=== PATIENT | female | born 1995 | race Caucasian/White ===

== ENCOUNTER → 2020-01-27 | Outpatient (CLI) | payer MEDICAID ==
[2020-01-27 10:15] LABS: EOS # 0.4 (0.04-0.40); EOS % 3.3 % (1.0-5.0); HEMATOCRIT 40.5 % (37.0-47.0); HEMOGLOBIN 12.7 g/dL (12.5-16.0); LYMPH# 1.9 (1.50-4.00); MEAN CELL VOLUME 74 fl (78-100); MEAN CORPUSCULAR HGB CONC 31 g/dL (33-37); MONO # 0.7 (0.20-0.80); PLATELET COUNT 344 K/mm3 (130-400); RED BLOOD COUNT 5.49 M/mm3 (4.10-5.30); RED CELL DISTRIBUTION WIDTH 17.2 % (11.5-14.5); WHITE BLOOD COUNT 12.6 K/mm3 (4.8-10.8)
[2020-01-27 10:17] LABS: MEAN CORPUSCULAR HEMOGLOBIN 23 pg (27-31); NEU # 9.5 (1.40-6.50)
[2020-01-27 10:24] LABS: ALBUMIN 4.3 g/dL (3.5-5.0); POTASSIUM 4.1 mmol/L (3.5-5.1)
[2020-01-27 10:25] LABS: CALCIUM 9.2 mg/dL (8.3-10.5)
[2020-01-27 10:26] LABS: TOTAL PROTEIN 7.2 g/dL (6.4-8.3)
[2020-01-27 10:33] LABS: MAGNESIUM 1.99 mg/dL (1.60-2.60)
[2020-01-27 10:43] LABS: TOTAL BILIRUBIN 0.1 mg/dL (0.2-1.2)
[2020-01-27 11:24] LABS: ERYTHROCYTE SEDIMENTATION RATE 23 mm/hr (0-20)
== END ==
LOC: LAB 09:36
PROVIDERS: Internal Medicine
DX: M54.16 Radiculopathy, lumbar region (principal)

== ENCOUNTER → 2020-04-09 | Outpatient (CLI) | payer MEDICAID ==
[2020-04-05 16:29] VITALS: BP 114/86
[~2020-04-09] MED LIST: ACETAMINOPHEN-H1 TA2 PO; AMITRIPTYLINE H25 M2 PO; CEFDINIR300 MG PO; CYCLOBENZAPRINE10 M1 PO; DESYREL50 MG PO; DIAMOX 250MG250 MG PO; FERROUS SULFAT325 M4 PO; GABAPENTIN100 MG PO; HYDROCORTISONE20 MG; HYDROXYZINE PAM50 M2 PO; KLONOPIN 1MG1 MG PO; PANTOPRAZOLE SO40 MG PO; PEG335017 GM/Dose PO; QUETIAPINE FUM400 M1 PO; ROSUVASTATIN CA10 MG PO; ROXIFOL-D TA500 UNIT PO; RT ALBUTEROL CC18 GM IH; SINGULAIR PO; SLOW RELEASE I142 MG PO; TILIA FE1 TAB PO; ZOFRAN ODT4 MG PO; [UNRECOGNIZED DRUG - CODE]
== END ==
LOC: RAD 16:59
DX: M25.551 Pain in right hip (principal); M25.561 Pain in right knee

== ENCOUNTER 2020-07-12 22:39 | Emergency (ER) | payer MEDICAID ==
[~2020-07-12 22:39] MED LIST changes: -HYDROCORTISONE20 MG; +HYDROCORTISONE20 MG PO
[2020-07-12] MEDS ORDERED: METOPROLOL SUCC25 M1 PO (23:13)
[2020-07-12] MEDS ORDERED: LEVETIRACETAM500 M2 PO (23:14)
[2020-07-12] MEDS ORDERED: ACETAZOLAMIDE500 M4 PO (23:14)
[2020-07-13 00:23] LABS: EOS # 0.5 (0.04-0.40); EOS % 3.5 % (1.0-5.0); HEMATOCRIT 39.7 % (37.0-47.0); HEMOGLOBIN 12.6 g/dL (12.5-16.0); LYMPH# 3.4 (1.50-4.00); MEAN CELL VOLUME 76 fl (78-100); MEAN CORPUSCULAR HGB CONC 32 g/dL (33-37); MEAN PLATELET VOLUME 10.4 fl (7.4-10.4); NEU # 7.9 (1.40-6.50); PLATELET COUNT 304 K/mm3 (130-400); RED BLOOD COUNT 5.25 M/mm3 (4.10-5.30); RED CELL DISTRIBUTION WIDTH 16.3 % (11.5-14.5); WHITE BLOOD COUNT 12.7 K/mm3 (4.8-10.8)
[2020-07-13 00:27] LABS: MEAN CORPUSCULAR HEMOGLOBIN 24 pg (27-31)
[2020-07-13 00:48] LABS: ALBUMIN 3.8 g/dL (3.5-5.0); POTASSIUM 3.9 mmol/L (3.5-5.1); SODIUM 139 mmol/L (136-145)
[2020-07-13 00:50] LABS: GLUCOSE 92 mg/dL (65-105)
[2020-07-13 00:51] LABS: TOTAL PROTEIN 6.9 g/dL (6.4-8.3)
[2020-07-13 00:52] LABS: TOTAL BILIRUBIN 0.2 mg/dL (0.2-1.2)
[2020-07-13 00:56] LABS: AST-SGOT 13 U/L (5-34)
[2020-07-13 00:57] LABS: ALT/SGPT 15 U/L (0-55)
[2020-07-13 00:58] LABS: CARBON DIOXIDE 17 mmol/L (22-29)
[2020-07-13 01:19] LABS: TROPONIN-I < 0.03 ng/mL (<0.030)
[2020-07-13 02:01] LABS: URINE APPEARANCE HAZY; URINE COLOR YELLOW
[2020-07-13 02:02] LABS: PH-URINE 5.5 (5.0 - 8.0); URINE BILIRUBIN NEGATIVE (NEGATIVE); URINE BLOOD 250 ery/uL (NEGATIVE); URINE GLUCOSE NEGATIVE (NEGATIVE); URINE KETONE NEGATIVE (NEGATIVE); URINE LEUKOCYTE ESTERASE NEGATIVE (NEGATIVE); URINE NITRATE NEGATIVE (NEGATIVE); URINE PROTEIN(semi-quant) TRACE mg/dL (NEGATIVE); URINE UROBILINOGEN NORMAL (NORMAL)
[2020-07-13 03:32] VITALS: BP 109/63
== END 2020-07-13 03:32 | disposition short-term general hospital (02) ==
LOC: ED 22:39
PROVIDERS: Nurse Practitioner Family
DX: G40.909 Epilepsy, unspecified, not intractable, without status epilepticus (principal); H54.7 Unspecified visual loss; R51.9 Headache, unspecified; F41.9 Anxiety disorder, unspecified; F31.9 Bipolar disorder, unspecified; J45.909 Unspecified asthma, uncomplicated; F17.210 Nicotine dependence, cigarettes, uncomplicated; Z98.2 Presence of cerebrospinal fluid drainage device; Z88.6 Allergy status to analgesic agent; Z88.2 Allergy status to sulfonamides; Z88.1 Allergy status to other antibiotic agents; Z20.822 Contact with and (suspected) exposure to COVID-19
CPT/HCPCS: J1885; J2405; J7030

== ENCOUNTER → 2020-09-20 | Outpatient (CLI) | payer MEDICAID ==
[~2020-09-20] MED LIST changes: +ACETAZOLAMIDE500 M4 PO; +LEVETIRACETAM500 M2 PO; +METOPROLOL SUCC25 M1 PO
[2020-09-20 15:10] LABS: ALBUMIN 4.1 g/dL (3.5-5.0); POTASSIUM 3.9 mmol/L (3.5-5.1)
[2020-09-20 15:11] LABS: CALCIUM 8.9 mg/dL (8.3-10.5)
[2020-09-20 15:12] LABS: TOTAL PROTEIN 7.1 g/dL (6.4-8.3)
[2020-09-20 15:14] LABS: TOTAL BILIRUBIN 0.2 mg/dL (0.2-1.2)
== END ==
LOC: LAB 14:51
PROVIDERS: Internal Medicine
DX: G40.909 Epilepsy, unspecified, not intractable, without status epilepticus (principal)

== ENCOUNTER → 2020-11-01 | Outpatient (CLI) | payer MEDICAID ==
[2020-11-01 17:15] LABS: URINE APPEARANCE HAZY; URINE BILIRUBIN NEGATIVE (NEGATIVE); URINE COLOR DARK YELLOW; URINE GLUCOSE NEGATIVE (NEGATIVE); URINE KETONE NEGATIVE (NEGATIVE); URINE PROTEIN(semi-quant) 1+ mg/dL (NEGATIVE)
[2020-11-01 17:16] LABS: URINE BLOOD NEGATIVE (NEGATIVE); URINE LEUKOCYTE ESTERASE 1+ (NEGATIVE); URINE NITRATE NEGATIVE (NEGATIVE); URINE UROBILINOGEN NORMAL (NORMAL)
== END ==
LOC: LAB 15:21
PROVIDERS: Internal Medicine
DX: N39.0 Urinary tract infection, site not specified (principal)

== ENCOUNTER → 2020-11-15 | Outpatient (CLI) | payer MEDICAID ==
[2020-11-15 16:40] LABS: URINE APPEARANCE CLOUDY; URINE COLOR YELLOW
[2020-11-15 16:41] LABS: PH-URINE 7.5 (5.0 - 8.0); URINE BILIRUBIN NEGATIVE (NEGATIVE); URINE BLOOD NEGATIVE (NEGATIVE); URINE GLUCOSE NEGATIVE (NEGATIVE); URINE KETONE NEGATIVE (NEGATIVE); URINE LEUKOCYTE ESTERASE 2+ (NEGATIVE); URINE NITRATE NEGATIVE (NEGATIVE); URINE PROTEIN(semi-quant) 1+ mg/dL (NEGATIVE); URINE UROBILINOGEN NORMAL (NORMAL); URINE WBC 31-50 /hpf (0-3)
[2020-11-15 17:43] LABS: ALBUMIN 4.1 g/dL (3.5-5.0); POTASSIUM 4.8 mmol/L (3.5-5.1)
[2020-11-15 17:45] LABS: CALCIUM 9.8 mg/dL (8.3-10.5)
[2020-11-15 17:46] LABS: TOTAL PROTEIN 7.4 g/dL (6.4-8.3)
[2020-11-15 17:48] LABS: TOTAL BILIRUBIN 0.2 mg/dL (0.2-1.2)
== END ==
LOC: LAB 15:49
PROVIDERS: Internal Medicine
DX: E27.1 Primary adrenocortical insufficiency (principal); N39.0 Urinary tract infection, site not specified

== ENCOUNTER → 2021-02-18 | Outpatient (CLI) | payer MEDICAID ==
[2021-02-18 12:25] LABS: BASO # 0.07 K/mm3 (0.02-0.10); EOS # 0.54 K/mm3 (0.04-0.40); EOS % 2.9 % (1.0-5.0); HEMOGLOBIN 13.1 g/dL (12.5-16.0); LYMPH# 2.08 K/mm3 (1.50-4.00); MEAN CELL VOLUME 77 fl (78-100); MEAN CORPUSCULAR HEMOGLOBIN 24 pg (27-31); MEAN CORPUSCULAR HGB CONC 31 g/dL (33-37); MEAN PLATELET VOLUME 9.3 fl (7.4-10.4); MONO # 0.93 K/mm3 (0.20-0.80); NEU # 14.86 K/mm3 (1.40-6.50); PLATELET COUNT 324 K/mm3 (130-400); RED BLOOD COUNT 5.48 M/mm3 (4.10-5.30); RED CELL DISTRIBUTION WIDTH 17.6 % (11.5-14.5); WHITE BLOOD COUNT 18.5 K/mm3 (4.8-10.8)
[2021-02-18 12:38] LABS: POTASSIUM 4.6 mmol/L (3.5-5.1)
[2021-02-18 12:39] LABS: CALCIUM 9.6 mg/dL (8.3-10.5)
== END ==
LOC: LAB 12:11
PROVIDERS: Internal Medicine
DX: G40.909 Epilepsy, unspecified, not intractable, without status epilepticus (principal)